=== PATIENT | male | born 1945 | race Caucasian/White ===

== ENCOUNTER → 2021-01-17 10:37 | Outpatient (CLI) | payer MEDICARE, SELFPAY ==
--- NOTE | 2021-01-17 10:37 | NM_ITS ---
APPROVED REPORT Exam: Nuclear Stress Test Indication: family hx Patient Location: Outpatient Stress Tech: Alexia Marsh [place] Tech:Hallie Zambrano DILLON RT(R)(N) Ht: 5 ft 9 in Wt: 197 lbs HR: 55 bpm BP: 140/85 mmHg BSA: 2.05 m2 BMI: 29.0 History: family hx Procedure: Patient exercised on Kam protocol 8.30 minutes and sec, resting heart rate 55 bpm, resting blood pressure 140/85 mmHg, with exercise maximum heart rate achived was 149 bpm which is 101 % of the maximum predicted heart rate and blood pressure was 195/96 mmHg. Test was stopped due to leg fatigue..soa. Patient denied any complaint of chest pain. Patient has Good exercise capacity, achieved 10.1 METs of workload on treadmill, the blood pressure response to exercise was Adequate. Electrocardiogram Resting electrocardiogram shows sinus rhythm, with exercise there is less than 1.[address] segment depression noted from the baseline EKG. The EKG portion of the exercise Myoview is negative for ischemia. Cardiac Stress and Resting SPECT Images: Cardiac Stress and Resting SPECT images were obtained using technetium 99m Myoview 32.2 mCi stress and 10.42 mCi at rest. Gated SPECT for analysis of segmental wall motion and calculation of the ejection fraction also done. Prone images were also obtained. Cardiac stress and resting SPECT images show uniform myocardial activity without segmental perfusion abnormality, computer derived ejection fraction is 46% with no regional wall motion abnormality, however visually estimated ejection fraction is 55%. Right ventricle is normal size and contractility. Conclusion: 1. The EKG portion of the exercise Myoview is negative for ischemia, patient has good exercise capacity achieved 10.1 METs of workload on treadmill, the blood pressure response to exercise was adequate, there was no exercise-induced chest discomfort. 2. No scintigraphic evidence of reversible ischemia seen, computer derived ejection fraction is 46% with no regional wall motion abnormality, however visually estimated ejection fraction is 55%. Right ventricle is normal size and contractility. 3. Likely normal exercise Myoview study. Electronically signed by : Duke Grullon MD 01/17/2021 15:09:35
--- NOTE | 2021-01-17 14:29 | CA_ITS ---
APPROVED REPORT Exam: Exercise Treadmill Technologist: Tracy Taylor, Ht: 5 ft 9 in Wt: 198 lbs BSA: 2.06 m2 HR: 55 bpm BP: 140/85 mmHg Indications: Chest pain Stress Test Details Test: Kam HR Resting HR: 70 bpm Max Heart Rate (APMHR): 147.697786 bpm Max HR Achieved: 149 bpm Target HR (85% APMHR): 124.829920 bpm % of APMHR: 101.36 Recovery HR: 84 bpm BP Resting BP: 146/96 mmHg Max BP: 195/96 mmHg Recovery BP: 150.0/94.0 mmHg ECG Resting ECG: Sinus vijaya, otherwise normal Clinical Exercise duration: 08:30 min Highest Stage Achieved: Exercise capacity: 10.1 METs Stress ECG Conclusion Exercised 8:30 on Kam Protocol Max HR: 149 %of PM: 101% Max BP: 195/96 METs: 10.1 Test stopped due to: Leg fatigue, SOA Symptoms: No CP. Arrhythmias/Ectopy: None ST-T Changes: Normal ST response to exercise. Conclusion: Normal GXT. Myoview images reported separately. Test Summary Stage 3 02:00 14.0 3.4 146 . . . Cardiolite injected REST . . . . . . . Standing REST 06:02 0.0 0.0 70 . 146/ 96 . . Stage 1 01:00 10.0 1.7 86 . . . . Stage 1 02:00 10.0 1.7 100 . . . . Stage 1 03:00 10.0 1.7 103 . 175/ 92 . . Stage 2 01:00 12.0 2.5 114 . . . . Stage 2 02:00 12.0 2.5 126 . . . . Stage 2 03:00 12.0 2.5 129 . 195/ 96 . . Stage 3 01:00 14.0 3.4 142 . . . . Stage 3 . . . . . . . Cardiolite injected Stage 3 02:00 14.0 3.4 146 . . . . Stage 3 02:30 14.0 3.4 149 . . . Stop exercise at 08:30 RECOVERY 01:00 0.0 0.0 129 . . . . RECOVERY 02:00 0.0 0.0 98 . 164/ 84 . . RECOVERY 03:00 0.0 0.0 93 . 178/ 90 . . RECOVERY 04:00 0.0 0.0 87 . 154/ 89 . . RECOVERY 05:00 0.0 0.0 93 . 154/ 89 . . RECOVERY 05:54 0.0 0.0 82 . 150/ 94 . . Electronically signed by : Duke Grullon MD 01/17/2021 15:06:11
== END ==
PROVIDERS: PCP Physician Assistant; Visit Provider Internal Medicine
DX: E78.5 Hyperlipidemia, unspecified (principal); I10 Essential (primary) hypertension; I25.10 Atherosclerotic heart disease of native coronary artery without angina pectoris; K21.9 Gastro-esophageal reflux disease without esophagitis; R07.89 Other chest pain; Z82.49 Family history of ischemic heart disease and other diseases of the circulatory system; Z87.891 Personal history of nicotine dependence
CPT/HCPCS: 78452; 93017; A9502